=== PATIENT | female | born 1955 | race Caucasian/White ===

== ENCOUNTER 2016-11-13 09:26 | Emergency (ER) | payer OTHER ==
[2016-11-13 10:42] LABS: HEMOGLOBIN 14.1 gm/dl (12.3-15.3); RED BLOOD COUNT 4.91 M/UL (4.00-5.10); WHITE BLOOD COUNT 8.7 K/UL (4.5-11.0)
== END 2016-11-13 13:45 | disposition home or self-care (01) ==
LOC: ER1 09:26
PROVIDERS: Physician Assistant
DX: R55 Syncope and collapse (principal); R06.02 Shortness of breath; R42 Dizziness and giddiness; R53.1 Weakness; R51 Headache; R11.0 Nausea; I10 Essential (primary) hypertension; Z85.3 Personal history of malignant neoplasm of breast
CPT/HCPCS: 36415; 71010; 80053; 81001; 82150; 82248; 82550; 82553; 83690; 83874; 84484; 85025; 85379; 93005; 96360; 99284

== ENCOUNTER → 2016-11-15 | Outpatient (CLI) | payer OTHER | LOC: LAB 10:49 | DX: Z11.59 Encounter for screening for other viral diseases (principal); R74.8 Abnormal levels of other serum enzymes | CPT/HCPCS: 36415; 80076; 86803 ==

== ENCOUNTER → 2016-12-06 | Outpatient (CLI) | payer OTHER | LOC: KOH-I 09:49 → US 10:00 | DX: R51 Headache (principal); R55 Syncope and collapse; H18.51 Endothelial corneal dystrophy; W19.XXXA Unspecified fall, initial encounter | CPT/HCPCS: 70470; 93880; Q9962 ==